=== PATIENT | male | born 1930 | race Hispanic/Latino ===

== ENCOUNTER → 2021-12-01 | Day surgery (SDC) | payer MEDICARE ==
[~2021-12-01] MED LIST: ACTOS15 MG PO; ARICEPT5 MG PO; ASPIR-LOW81 MG PO; CRESTOR10 MG PO; FINASTERIDE5 MG PO; FLOMAX0.4 MG PO; METFORMIN HCL500 MG PO; METOPROLOL TART25 MG PO; NAMENDA10 MG PO; OMEPRAZOLE20 M1 PO; OR PHACO EYE KIT ONE; OXYBUTYNIN CHLOR5 MG PO; PREOP PHACO EYE KIT ONE; QUETIAPINE FUMA25 MG PO; SERTRALINE HCL100 MG PO; TRICOR145 MG PO
[2021-12-01 14:50] VITALS: BP 157/68
== END | disposition home or self-care (01) ==
LOC: OR 11:28
PROVIDERS: ATTEND Ophthalmology
DX: H25.11 Age-related nuclear cataract, right eye (principal); I25.10 Atherosclerotic heart disease of native coronary artery without angina pectoris; E11.22 Type 2 diabetes mellitus with diabetic chronic kidney disease; I12.9 Hypertensive chronic kidney disease with stage 1 through stage 4 chronic kidney disease, or unspecified chronic kidney disease; N18.9 Chronic kidney disease, unspecified; F03.90 Unspecified dementia, unspecified severity, without behavioral disturbance, psychotic disturbance, mood disturbance, and anxiety; Z01.812 Encounter for preprocedural laboratory examination; Z20.822 Contact with and (suspected) exposure to COVID-19; Z79.82 Long term (current) use of aspirin; Z79.84 Long term (current) use of oral hypoglycemic drugs; Z79.899 Other long term (current) drug therapy; Z98.61 Coronary angioplasty status
CPT/HCPCS: 36415; 66982; 82948; U0002; V2632